=== PATIENT | female | born 1995 | race African-American/Black ===

== ENCOUNTER 2016-08-26 08:50 | Outpatient (CLI) | payer OTHER ==
[~2016-08-26] VITALS: Ht 160 cm; Wt 82.6 kg
[~2016-08-26 08:50] MED LIST: NORCO 5/3251 TABLET PO; PRENATAL TABLE1 EAC3 PO
[2016-08-26 12:06] LABS: ADD MIUA? YES; BILIRUBIN NEGATIVE; BLOOD SMALL; COLOR YELLOW ((YELLOW)); GLUCOSE (STRIP) NEGATIVE; KETONES NEGATIVE; LEUKOCYTES LARGE; NITRITE NEGATIVE; PROTEIN (STRIP) NEGATIVE; SPECIFIC GRAVITY 1.023 (1.000-1.030); UROBILINOGEN 0.2 MG/DL (0.2-1.0)
[2016-08-26 12:54] LABS: AMPHETAMINES QUANT VALUE 0 NG/ML; BARBITUATES QUANT VALUE 0 NG/ML; BENZODIAZEPINES QUANT VALUE 0 NG/ML; BENZODIAZEPINES, URINE SCREEN Negative (200 ng/mL); MARIJUANA QUANT VALUE 0 NG/ML; OPIATES QUANTITATIVE VALUE 0 NG/ML; PHENCYCLIDINE QUANT VALUE 0 NG/ML
[2016-08-26 13:10] LABS: BACTERIA 2+ /HPF; EPITHELIAL CELLS 2+ /HPF; MUCUS 2+ /LPF; RED BLOOD CELLS 0-5 /HPF (0-5); UCUL ADDED? YES
[2016-08-26 13:11] LABS: AMORPHOUS URATES CRYSTALS 2+; CASTS NONE SEEN /LPF; CRYSTALS PRESENT
[2016-08-26 18:02] LABS: CANDIDA DNA PROBE NEGATIVE; GARDNERELLA DNA PROBE POSITIVE; INTERNAL CONTROL VALID? YES
[2016-08-28 12:16] LABS: CHLAMYDIA TRACHOMATIS NEGATIVE; NEISSERIA GONORRHOEAE POSITIVE
== END 2016-08-26 13:40 | disposition home or self-care (01) ==
LOC: LDRP-OP 08:50 → 2WEST 08:54
PROVIDERS: Midwife; Obstetrics & Gynecology
DX: O46.90 Antepartum hemorrhage, unspecified, unspecified trimester (principal); Z3A.00 Weeks of gestation of pregnancy not specified
CPT/HCPCS: 59025; 80306 90; 81003; 82731; 87086; 87480; 87491; 87510; 87591; 87660; G0378